=== PATIENT | female | born 1985 | race Caucasian/White ===

== ENCOUNTER 2020-11-17 16:46 | Outpatient (CLI) | payer OTHER, SELFPAY | END 2020-11-17 16:47 | disposition home or self-care (01) | LOC: ANHCOVIDVC 16:46 | PROVIDERS: PCP Family Medicine | DX: Z23 Encounter for immunization (principal) | CPT/HCPCS: 0001A; 91300 ==

== ENCOUNTER 2020-12-08 16:49 | Outpatient (CLI) | payer OTHER, SELFPAY | END 2020-12-08 16:50 | disposition home or self-care (01) | LOC: ANHCOVIDVC 16:49 | PROVIDERS: PCP Family Medicine | DX: Z23 Encounter for immunization (principal) | CPT/HCPCS: 0002A; 91300 ==

== ENCOUNTER → 2021-05-24 14:31 | Outpatient (REF) | payer OTHER, SELFPAY | LOC: ANHLAB 14:31 | PROVIDERS: PCP Family Medicine; Visit Provider Nurse Practitioner | DX: D22.39 Melanocytic nevi of other parts of face (principal); D22.5 Melanocytic nevi of trunk | CPT/HCPCS: 88305 ==